=== PATIENT | female | born 1995 | race Two or more races ===

== ENCOUNTER → 2024-06-19 | Outpatient (CLI) | payer MEDICAID, SELFPAY ==
--- NOTE | 2024-06-19 16:48 | XR_ITS ---
Examination: Thoracic spine 3 views Technique one AP lateral coned lateral upper dorsal spine 3 views Exam date and time: June 19, 2024 1657 hours INDICATION: Back pain years. FINDINGS: Thoracic dextroscoliosis 8 degrees No thoracic fracture Minimal thoracic spondylosis No significant thoracic disc narrowing IMPRESSION: Thoracic dextroscoliosis 8 degrees
== END | disposition home or self-care (01) ==
PROVIDERS: PCP Nurse Practitioner Family; Referring Provider Nurse Practitioner Family; Visit Provider Nurse Practitioner Family
DX: M41.84 Other forms of scoliosis, thoracic region (principal)
CPT/HCPCS: 72070

== ENCOUNTER 2024-11-11 14:47 | Outpatient (AMB) | payer MEDICAID, SELFPAY ==
--- NOTE | 2024-11-11 14:50 | GSCOFFNT_ITS ---
Vital Signs - [facility] 11/11/24 14:54 Height 1.47 m Height Method Measured Weight 73.539 kg Weight Measurement Method Standing Scale BMI 33.8 BP 100/68 Blood Pressure Source Automatic Cuff Blood Pressure Location Left Upper Arm Position Sitting Respiration 18 Pulse 86 Pulse Source Monitor Temp 97.9 F Temp Source Temporal Artery Scan Pulse Oximetry (%) 94 L Oxygen Delivery Method Room Air Med/Allergies Allergies & Medications Allergies No Known Allergies Allergy (Verified 11/11/24 14:55) Medication Reconciliation No Known Home Medications 11/11/24 [History Confirmed 11/11/24] MA Intake Visit Data Collection New Patient or Established: Established Patient (seen at [facility] within 3 years) Seen by Clinical Staff ONLY (RN/MA): No Pain Present Currently: No Pain Location: Buttock (ABCESS) Pain Scale Used: Stanley-Mcdowell/Numerical Anatomic Pathologist Required: No PCP or OBGYN visit in last 3 months: Yes Hx Now: No Do You Feel Safe at Home: Yes Authorities Contacted: N/A Smoking Status Smoking Status: Current every day smoker Cessation Counseling Provided: DUGLAS was advised that quitting smoking is the single most important factor to protect the health of themselves and their family. Discussed the benefits of quitting smoking with patient. Encouraged patient to quit smoking and provided Cessation assistance materials and resources. Tobacco Use: Nicotine Years smoked: 2 Are you interested in quitting?: No Immunization / Flu Flu Vaccine in the Last 12 Months: No Flu Vaccine Exclusion Criteria: No Exclusion Criteria Past Medical History Past Medical History NEUROLOGIC: Negative Neurological Disorders or Seizures CARDIAC: Negative Cardiac Disorders or Congestive Heart Failure RESPIRATORY: Negative Chronic Obstructive Pulmonary Disease (COPD) GASTROINTESTINAL: Positive Gastrointestinal Disorders and Obesity; Negative Hepatitis or Colorectal Cancer GENITOURINARY: Negative Genitourinary Disorders, Renal Disease or Prostate Cancer REPRODUCTIVE: Negative Breast Cancer or Testicular Cancer MUSCULOSKELETAL: Negative Bone Cancer ENDOCRINE: Positive Endocrine Disorders and Hypothyroidism (LAST TOOK LEVOTHYROXINE); Negative Diabetes Mellitus Type 1, Diabetes Mellitus Type 2, Parathyroid Disease, Pituitary Disease, Systemic Lupus Erythematosus, Syndrome of Inappropriate Antidiuretic Hormone (SIADH) or Graves' Disease HEMATOLOGIC: Negative Blood Disorders PSYCHO/SOCIAL: Positive Anxiety (NOT CURRENTLY TAKING MEDICATION PREV USE TWO YEARS AGO) OTHER HISTORY: Negative Hospitalization, Down Syndrome, Developmental Delay, Shingles, Falls, Blood Transfusions, Blood Transfusion Reaction, Anesthesia Reactions, Organ Transplant, Chemotherapy, Radiation Therapy, Hyperbaric Therapy, MRSA, VRSA, Vancomycin-Resistant Enterococci, Human Immunodeficiency Virus (HIV), Chicken Pox, Measles, Mumps, Rubella ([place] Measles), Pertussis, Clostridium Difficile, Cancer, Breast Cancer, Cervical Cancer, Colorectal Cancer, Lung Cancer, Ovarian Cancer, Prostate Cancer or Testicular Cancer Family History FAMILY HISTORY: Negative Family Cardiac Disorders Surgical History SURGICAL: Negative Organ Transplant Social History SMOKING STATUS: Smoking status: Current every day smoker SECOND HAND EXPOSURE: second hand exposure: No ALCOHOL: Alcohol Intake: Current ALCOHOL FREQUENCY: Alcohol Intake Frequency: holidays/special occasions only HOUSING: Housing: House LIVES WITH: Lives With: Family HPI HPI Narrative 29F referred for right gluteal abscess. Patient states she first noticed it about a month ago, there was no clear inciting factor and she had never had similar symptoms. The abscess spontaneously drained and she has not noticed any drainage from the area anytime recently, although it is still somewhat uncomfortable and she is taking sitz bath's for that. At first patient was having constipation but she has worked to improve her bowel movement so that she is not straining as much. Patient states she had a colonoscopy years ago to rule out Crohn's disease and it was negative PMH: Hypothyroidism, HLD PSH: Meds: Levothyroxine, no antiplatelet or anticoagulation Allergies: NKDA Social history: Uses a vape Family history: No known CRC ROS Review of Systems Systems Reviewed: All systems reviewed, normal except as documented Objective/Exam General General Appearance: alert, cooperative and well groomed Resp Respiratory exam: Absent respiratory distress Rectal Rectal exam: Present other (At the left anterior anus approximately 1 cm from the verge there is an area that is mildly tender and indurated, with no fluctuance and no opening or drainage) Assessment & Plan Diagnosis / Problem List (1) Perianal abscess: Status: Acute Assessment & Plan: 29F with a recent history of perianal abscess which spontaneously drained and is now appearing healed. I explained that there is a chance she will develop a perianal fistula which she will no if she has drainage from the external opening, but for the time being there is no intervention needed. I encouraged her to continue her healthy bowel habits and take sitz baths as needed for pain Office Procedures GNS Level of Care Nursing/Assessment Patient Status: Established Patient Nursing Assessment/Reassesment: Medication Reconciliation, Update PMH in EMR and Vital Signs Coordination of Care: Complex Care and Chronic Disease 1-5, Consent,records obtained, informed consent, Education Simp Pt/Fam, Results/Orders obtained and Staff clarify orders Established Patient Charge Established Patient Point Assignment: 90 Established Patient Point Charge: EP Level 3 (80-115) Patient Portal Questionaires Social History Living Situation History Housing: House Tobacco History Smoking Status: Current every day smoker tobacco type: e-cigarettes Second Hand Smoke Exposure: No Alcohol History Alcohol Intake: Current Alcohol Intake Frequency: holidays/special occasions only Substance Use History Substance Use: PT DENIES SUBSTANCE USE. Domestic Abuse History Do You Feel Safe at Home: Yes Review of Systems Report any current symptoms Only answer those that you have currently: Past Medical History Past Medical History Have you ever been diagnosed with any of the following: Neurological Problems Seizures: No Cardiology Problems Congestive Heart Failure: No Respiratory Problems Chronic Obstructive Pulmonary Disease (COPD): No Stomache/Intestinal Problems Hepatitis: No Colorectal Cancer: No Obesity: Yes Genital/Urinary Problems Renal Disease: No Reproductive Problems Breast Cancer: No Musculoskeletal Problems Bone Cancer: No Endocrine Problems Diabetes Mellitus Type 1: No Diabetes Mellitus Type 2: No Hypothyroidism: Yes (LAST TOOK LEVOTHYROXINE) Parathyroid Disease: No Pituitary Disease: No Systemic Lupus Erythematosus: No Syndrome of Inappropriate Antidiuretic Hormone: No Graves' Disease: No Psychologic Problems Anxiety: Yes (NOT CURRENTLY TAKING MEDICATION PREV USE TWO YEARS AGO) Other Problems Hospitalization: No Down Syndrome: No Developmental Delay: No Shingles: No Falls: No Blood Transfusions: No Blood Transfusion Reaction: No Anesthesia Reactions: No Organ Transplant: No Chemotherapy: No Radiation Therapy: No Hyperbaric Therapy: No MRSA: No VRSA: No Vancomycin-Resistant Enterococci: No Human Immunodeficiency Virus (HIV): No Chicken Pox: No Measles: No Mumps: No Rubella ([place] Measles): No Pertussis: No Clostridium Difficile: No Cancer: No Cervical Cancer: No Lung Cancer: No Ovarian Cancer: No
[2024-11-11 14:54] VITALS: BP 100/68; PULSE 86; RESP 18; TEMP 36.6; O2SAT 94; BMI 33.8
== END 2024-11-11 15:27 | disposition home or self-care (01) ==
LOC: HODSRG 14:47
PROVIDERS: PCP Nurse Practitioner Family; Referring Provider Nurse Practitioner Family; Supervising Provider Surgery; Visit Provider Surgery
DX: K61.0 Anal abscess (principal); E03.9 Hypothyroidism, unspecified; E66.9 Obesity, unspecified; Z68.33 Body mass index [BMI] 33.0-33.9, adult
CPT/HCPCS: 99213; G0463